=== PATIENT | female | born 1975 | race Two or more races ===

== ENCOUNTER 2019-02-27 19:25 | Inpatient (IN) | payer OTHER, BC ==
[2019-02-27 22:56] VITALS: BMI 24.3
--- NOTE | 2019-02-27 23:33 | HP ---
CIWA Score Nausea/Vomitin-No Nausea/No Vomiting Muscle Tremors: 4-Moderate,w/Arms Extend Anxiety: 4-Mod. Anxious/Guarded Agitation: 4-Moderately Restless Paroxysmal Sweats: 3 Orientation: 0-Oriented Tacttile Disturbances: 0-None Auditory Disturbances: 0-None Visual Disturbances: 0-None Headache: 0-None Present CIWA-Ar Total Score: 15 - Admission Criteria OAS Guidelines: Admission for Medically Managed Detox: Requires at least one of the followin. CIWA greater than 12 2. Seizures within the past 24 hours 3. Delirium tremens within the past 24 hours 4. Hallucinations within the past 24 hours 5. Acute intervention needed for co occurring medical disorder 6. Acute intervention needed for co occurring psychiatric disorder 7. Severe withdrawal that cannot be handled at a lower level of care (continued vomiting, continued diarrhea, abnormal vital signs) requiring intravenous medication and/or fluids 8. Patient presents the following: CIWA greater than 12 Admission Criteria Met: Admission criteria met Admission ROS [facility] Chief Complaint: C/O WORSENING WITHDRAWAL SX'S. SEEKING DETOX Allergies/Adverse Reactions: Allergies Allergy/AdvReac Type Severity Reaction Status Date / Time Penicillins AdvReac Verified 02/27/19 22:39 History of Present Illness: 43 Y.O. FEMALE WITH HX/O ALCOHOLISM HERE FOR DETOX. SHE IS REFERRED BY [facility] AFTER PRESENTING THERE FOR DETOX. THIS IS HERE FIRST TIME SEEKING DETOX TXMENT. PRESENTS WITH C/O WORSENING WITHDRAWAL SX'S. CIWA 15. DENIES ANY HX/O CLEAN TIME , WITHDRAWAL SZ, + BLACKOUTS. DOMICILED, EMPLOYED, DENIES LEGALS Exam Limitations: No Limitations - Ebola screening Have you traveled outside of the country in the last 21 days: No (N) Have you had contact with anyone from an Ebola affected area: No Do you have a fever: No - Review of Systems Constitutional: Chills, Loss of Appetite, Night Sweats, Changes in sleep EENT: reports: No Symptoms Reported Respiratory: reports: No Symptoms reported Cardiac: reports: No Symptoms Reported GI: reports: Diarrhea, Nausea, Poor Appetite, Poor Fluid Intake : reports: No Symptoms Reported Musculoskeletal: reports: No Symptoms Reported Integumentary: reports: Rash (BLE) Neuro: reports: Tremors, Dizziness, Other (+BLACKOUTS) Endocrine: reports: No Symptoms Reported Hematology: reports: No Symptoms Reported Psychiatric: reports: Orientated x3, Agitated (IRRITABLE), Anxious, Depressed Other Systems: Reviewed and Negative Patient History - Patient Medical History Hx Anemia: No Hx Asthma: No Hx Chronic Obstructive Pulmonary Disease (COPD): No Hx Cancer: No Hx Cardiac Disorders: No Hx Congestive Heart Failure: No Hx Hypertension: No Hx Hypercholesterolemia: Yes Hx Pacemaker: No HX Cerebrovascular Accident: No Hx Seizures: No Hx Dementia: No Hx Diabetes: No Hx Gastrointestinal Disorders: Yes (GERD) Hx Liver Disease: No Hx Genitourinary Disorders: No Hx Sexually Transmitted Disorders: No Hx Renal Disease (ESRD): No Hx Thyroid Disease: No Hx Human Immunodeficiency Virus (HIV): No Hx Hepatitis C: No Hx Depression: Yes Hx Suicide Attempt: No Hx Bipolar Disorder: No Hx Schizophrenia: No Other Medical History: DENIES - Patient Surgical History Past Surgical History: Yes Hx Abdominal Surgery: Yes (HERNIA REPAIR) Other Surgical History: LYMPH NODE REMOVAL FROM NECK Anesthesia Reaction: No - PPD History Previous Implant?: Yes Documented Results: Negative w/o proof Implanted On Prior R Admission?: No PPD to be Administered?: Yes - Reproductive History Patient is a Female of Child Bearing Age (11 -55 yrs old): Yes Last Menstrual Period: 12/28/16 LMP comment: [place] [facility] [place] Smoking Cessation Smoking history: Current some day smoker Have you smoked in the past 12 months: Yes Aproximately how many cigarettes per day: 2 Cigars Per Day: 0 Hx Chewing Tobacco Use: No Initiated information on smoking cessation: Yes 'Breaking Loose' booklet given: 02/27/19 - Substance & Tx. History Hx Alcohol Use: Yes Hx Substance Use: Yes Substance Use Type: Alcohol Hx Substance Use Treatment: No - Substances abused Alcohol Substance route: Oral Frequency: Daily Amount used: a pint and half of vodka Age of first use: 33 Date of last use: 02/27/19 Family Disease History - Family Disease History Family History: Denies Admission Physical Exam BHS - Vital Signs Vital Signs: Vital Signs - 24 hr 02/27/19 22:36 Temperature 98.2 F Pulse Rate 144 H Respiratory 16 Rate Blood Pressure 112/70 - Physical General Appearance: Yes: Alcohol on Breath, Tremorous (FELT), Irritable, Anxious HEENTM: Yes: EOMI, Normocephalic, Normal Voice, ARNULFO, Pharynx Normal Respiratory: Yes: Chest Non-Tender, Lungs Clear, Normal Breath Sounds, No Respiratory Distress, No Accessory Muscle Use Neck: Yes: No masses,lesions,Nodules, Supple, Trachea in good position Breast: Yes: Breasts Symetrical, No Discharge Cardiology: Yes: Regular Rhythm, Regular Rate, S1, S2 Abdominal: Yes: Normal Bowel Sounds, Non Tender, Soft Genitourinary: Yes: Within Normal Limits Back: Yes: Normal Inspection Musculoskeletal: Yes: full range of Motion, Gait Steady Extremities: Yes: Normal Capillary Refill, Normal Range of Motion, Non-Tender, Tremors Neurological: Yes: Fully Oriented, Alert, Motor Strength 5/5, Depressed Affect Integumentary: Yes: Dry, Warm, Rash (GRANULOMA ANNULARE TO BLE) - Diagnostic (1) Alcohol dependence with uncomplicated withdrawal Current Visit: Yes Status: Acute (2) HLD (hyperlipidemia) Current Visit: Yes Status: Acute (3) Nicotine dependence Current Visit: Yes Status: Chronic (4) Depressed affect Current Visit: Yes Status: Acute (5) At risk for dehydration due to poor fluid intake Current Visit: Yes Status: Acute (6) Granuloma annulare Current Visit: Yes Status: Acute (7) GERD (gastroesophageal reflux disease) Current Visit: Yes Status: Acute Cleared for Admission S - Detox or Rehab [facility] Level of Care: Medically Managed Detox Regimen/Protocol: Librium Claeared for Rehab Admission: No Breathalyzer - Breathalyzer Breathalyzer: 0.154 Urine Drug Screen - Test Device Lot number: [id number] Expiration date: 11/02/20 - Control Is test valid?: Yes - Results Drug screen NEGATIVE: Yes Inpatient Rehab Admission - Rehab Decision to Admit Inpatient rehab admission?: No
[2019-02-27] MEDS ORDERED: chlordiazePOXIDE HCL 25 MG CAPSULE PO PRN (23:46)
[2019-02-27] MEDS ORDERED: MAGNESIUM HYDROX 2400MG/30ML ORAL SUSPENSION 30 ML CUP PO PRN (23:46)
[2019-02-27] MEDS ORDERED: hydrOXYzine PAMOATE 25 MG CAPSULE (FP) PO PRN (23:46)
[2019-02-27] MEDS ORDERED: MAGNESIUM CITRATE 300 ML BOTTLE PO PRN (23:46)
[2019-02-27] MEDS ORDERED: DICYCLOMINE HCL 10 MG CAPSULE PO PRN (23:46)
[2019-02-27] MEDS ORDERED: ONDANSETRON *ODT* 4 MG TABLET SL PRN (23:46)
[2019-02-27] MEDS ORDERED: IBUPROFEN 400 MG TABLET (FP) PO PRN (23:46)
[2019-02-27] MEDS ORDERED: guaiFENesin 200 MG/10 ML 10 ML UNIT-DOSE CUPS PO PRN (23:46)
[2019-02-27] MEDS ORDERED: MAG HYDROX/AL HYDROX/SIMETH 30 ML UNIT-DOSE CUP PO PRN (23:46)
[2019-02-27] MEDS ORDERED: P-EPHED 60MG/TRIPROLIDI 2.5MG TABLET PO PRN (23:46)
[2019-02-27] MEDS ORDERED: MENTHOL/PHENOL 1 EACH UD MM PRN (23:46)
[2019-02-27] MEDS ORDERED: METHOCARBAMOL 500 MG TABLET PO PRN (23:46)
[2019-02-27] MEDS ORDERED: ACETAMINOPHEN 325 MG TABLET (FP) PO PRN ×2 (23:46)
[2019-02-27] MEDS ORDERED: BISMUTH SUBSALICYLATE 524 MG/30 ML UD PO PRN (23:46)
[2019-02-27] MEDS ORDERED: HYDROCORTISONE 1% TOPICAL LOTION 118 ML BOTTLE TP PRN (23:56)
[2019-02-28] MEDS: chlordiazePOXIDE HCL 25 MG CAPSULE PO SCH ×5 (00:45→22:28)
[2019-02-28] MEDS: NICOTINE POLACRILEX 2 MG GUM BUC PRN ×4 (00:55→22:30)
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
[2019-02-28 10:06] LABS: HEMATOCRIT 36.9 % (32.4-45.2); HEMOGLOBIN 12.3 GM/dL (10.7-15.3); MCH 30.8 pg (25.7-33.7); MCHC 33.3 g/dl (32.0-36.0); MEAN CELL VOLUME 92.7 fl (80-96); MEAN PLT VOLUME 7.9 fl (7.5-11.1); PLATELET COUNT 347 K/MM3 (134-434); RBC 3.98 M/mm3 (3.60-5.2); RDW 15.3 % (11.6-15.6); WHITE BLOOD COUNT 4.4 K/mm3 (4.0-10.0)
[2019-02-28 10:14] LABS: ALBUMIN 3.8 g/dl (3.4-5.0); BILIRUBIN,TOTAL 0.3 mg/dL (0.2-1); BLOOD UREA NITROGEN 13.8 mg/dL (7-18); CREATININE 0.8 mg/dL (0.55-1.3); POTASSIUM 4.1 mmol/L (3.5-5.1); TOT PROT 7.4 g/dl (6.4-8.2)
[2019-02-28] MEDS: PRENATAL VITAMINS W/ FOLIC ACID TABLET (FP) PO SCH (10:23)
[2019-02-28] MEDS: SERTRALINE HCL 50 MG TABLET (FP) PO SCH (10:23)
[2019-02-28] MEDS: NICOTINE 14 MG/24 HOURS TOPICAL PATCH TD SCH (10:25)
--- NOTE | 2019-02-28 11:42 | PN ---
S CIWA - CIWA Score Nausea/Vomitin-Mild Nausea/No Vomiting Muscle Tremors: 2 Anxiety: 1-Mildly Anxious Agitation: 1-Slight > Activity Paroxysmal Sweats: No Perspiration Orientation: 0-Oriented Tacttile Disturbances: 0-None Auditory Disturbances: 0-None Visual Disturbances: 0-None Headache: 1-Very Mild CIWA-Ar Total Score: 6 BHS Progress Note (SOAP) Subjective: pt states doing well with detox protocol, emploted as principal O: Vital Signs - 24 hr 02/27/19 02/28/19 02/28/19 22:36 00:30 00:45 Temperature 98.2 F 97.9 F Pulse Rate 144 H 69 69 Respiratory 16 16 Rate Blood Pressure 112/70 148/79 02/28/19 02/28/19 02/28/19 01:00 01:30 02:00 Temperature Pulse Rate 69 82 82 Respiratory 18 18 Rate Blood Pressure 02/28/19 02/28/19 02/28/19 02:30 03:00 03:30 Temperature Pulse Rate 80 80 80 Respiratory 18 18 18 Rate Blood Pressure 02/28/19 02/28/19 02/28/19 05:00 05:30 06:00 Temperature Pulse Rate 77 73 73 Respiratory 16 Rate Blood Pressure 02/28/19 02/28/19 02/28/19 06:30 07:00 07:03 Temperature 98.2 F Pulse Rate 77 72 73 Respiratory 16 Rate Blood Pressure 125/72 02/28/19 02/28/19 02/28/19 07:30 08:00 09:00 Temperature Pulse Rate 78 78 72 Respiratory 16 Rate Blood Pressure 02/28/19 02/28/19 02/28/19 09:30 10:00 10:30 Temperature 96.5 F L Pulse Rate 76 74 76 Respiratory 16 16 16 Rate Blood Pressure 149/73 Laboratory Tests 02/27/19 02/28/19 02/28/19 23:17 07:00 07:00 WBC 4.4 RBC 3.98 Hgb 12.3 Hct 36.9 MCV 92.7 MCH 30.8 MCHC 33.3 RDW 15.3 Plt Count 347 MPV 7.9 Sodium 138 Potassium 4.1 Chloride 104 Carbon Dioxide 28 Anion Gap 7 L BUN 13.8 Creatinine 0.8 Est GFR (CKD-EPI)AfAm 103.19 Est GFR (CKD-EPI)NonAf 89.04 Random Glucose 103 Calcium 9.0 Total Bilirubin 0.3 AST 74 H ALT 88 H Alkaline Phosphatase 73 Total Protein 7.4 Albumin 3.8 POC Urine HCG, Qual Negative mildly iincreased liver enzymes a/p: AUD- continue detox protocol, 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
[2019-02-28] MEDS: MELATONIN 5 MG TABLETS PO PRN (22:28)
[2019-02-28] MEDS: THIAMINE HCL 100 MG TABLET (FP) PO SCH (22:28)
[2019-03-01] MEDS: chlordiazePOXIDE HCL 25 MG CAPSULE PO SCH ×3 (06:03→17:23)
--- NOTE | 2019-03-01 10:50 | PN ---
S CIWA - CIWA Score Nausea/Vomitin Muscle Tremors: 2 Anxiety: 2 Agitation: 2 Paroxysmal Sweats: 1-Minimal Palms Moist Orientation: 0-Oriented Tacttile Disturbances: 1-Very Mild Itch/Numbness Auditory Disturbances: 1-Very Mild Visual Disturbances: 0-None Headache: 2-Mild CIWA-Ar Total Score: 13 BHS Progress Note (SOAP) Subjective: alert,irritable,anxious,interrupted sleep,tremor Objective: 03/01/19 10:48 Vital Signs Temperature 97.5 F L 03/01/19 09:14 Pulse Rate 69 03/01/19 09:14 Respiratory Rate 18 03/01/19 09:14 Blood Pressure 112/76 03/01/19 09:14 O2 Sat by Pulse Oximetry (%) Assessment: 03/01/19 10:49 withdrawal symptom Plan: continue detox,ua
[2019-03-01] MEDS: PRENATAL VITAMINS W/ FOLIC ACID TABLET (FP) PO SCH (10:55)
[2019-03-01] MEDS: SERTRALINE HCL 50 MG TABLET (FP) PO SCH (10:55)
[2019-03-01] MEDS: NICOTINE 14 MG/24 HOURS TOPICAL PATCH TD SCH (10:57)
[2019-03-01] MEDS: NICOTINE POLACRILEX 2 MG GUM BUC PRN ×2 (17:23→21:46)
[2019-03-01] MEDS: chlordiazePOXIDE HCL 10 MG CAPSULE PO SCH (22:27)
[2019-03-01] MEDS: THIAMINE HCL 100 MG TABLET (FP) PO SCH (22:27)
[2019-03-01] MEDS: MELATONIN 5 MG TABLETS PO PRN (22:27)
[2019-03-01] MEDS ORDERED: chlordiazePOXIDE HCL 10 MG CAPSULE PO PRN (23:00)
[2019-03-02] MEDS: chlordiazePOXIDE HCL 10 MG CAPSULE PO SCH ×4 (06:04→22:11)
[2019-03-02] MEDS ORDERED: MECLIZINE HCL 12.5 MG TABLET PO PRN (09:27)
--- NOTE | 2019-03-02 09:31 | PN ---
S CIWA - CIWA Score Nausea/Vomitin-Mild Nausea/No Vomiting Muscle Tremors: 3 Anxiety: 2 Agitation: 0-Normal Activity Paroxysmal Sweats: 1-Minimal Palms Moist Orientation: 0-Oriented Tacttile Disturbances: 0-None Auditory Disturbances: 0-None Visual Disturbances: 1-Very Mild Sensitivity Headache: 0-None Present CIWA-Ar Total Score: 8 S Progress Note (SOAP) Subjective: c/o dizziness, fatigue, constipation last BM yesterday, chills Objective: 03/02/19 11:06 Vital Signs Temperature 97.9 F 03/02/19 09:13 Pulse Rate 67 03/02/19 09:13 Respiratory Rate 18 03/02/19 09:13 Blood Pressure 108/65 03/02/19 09:13 O2 Sat by Pulse Oximetry (%) Laboratory Last Values WBC 4.4 K/mm3 (4.0-10.0) 02/28/19 07:00 RBC 3.98 M/mm3 (3.60-5.2) 02/28/19 07:00 Hgb 12.3 GM/dL (10.7-15.3) 02/28/19 07:00 Hct 36.9 % (32.4-45.2) 02/28/19 07:00 MCV 92.7 fl (80-96) 02/28/19 07:00 MCH 30.8 pg (25.7-33.7) 02/28/19 07:00 MCHC 33.3 g/dl (32.0-36.0) 02/28/19 07:00 RDW 15.3 % (11.6-15.6) 02/28/19 07:00 Plt Count 347 K/MM3 (134-434) 02/28/19 07:00 MPV 7.9 fl (7.5-11.1) 02/28/19 07:00 Sodium 138 mmol/L (136-145) 02/28/19 07:00 Potassium 4.1 mmol/L (3.5-5.1) 02/28/19 07:00 Chloride 104 mmol/L (98-107) 02/28/19 07:00 Carbon Dioxide 28 mmol/L (21-32) 02/28/19 07:00 Anion Gap 7 MMOL/L (8-16) L 02/28/19 07:00 BUN 13.8 mg/dL (7-18) 02/28/19 07:00 Creatinine 0.8 mg/dL (0.55-1.3) 02/28/19 07:00 Est GFR (CKD-EPI)AfAm 103.19 02/28/19 07:00 Est GFR (CKD-EPI)NonAf 89.04 02/28/19 07:00 Random Glucose 103 mg/dL (74-106) 02/28/19 07:00 Calcium 9.0 mg/dL (8.5-10.1) 02/28/19 07:00 Total Bilirubin 0.3 mg/dL (0.2-1) 02/28/19 07:00 AST 74 U/L (15-37) H 02/28/19 07:00 ALT 88 U/L (13-61) H 02/28/19 07:00 Alkaline Phosphatase 73 U/L (45-117) 02/28/19 07:00 Total Protein 7.4 g/dl (6.4-8.2) 02/28/19 07:00 Albumin 3.8 g/dl (3.4-5.0) 02/28/19 07:00 POC Urine HCG, Qual Negative 02/27/19 23:17 RPR Titer Nonreactive (NONREACTIVE) 02/28/19 07:00 Assessment: 03/02/19 11:07 Aox3 no distress, full ROM, abd non-tender withdrawal sx vertigo Plan: increase po fluids antivert PRN continue detox continue to monitor
[2019-03-02] MEDS: NICOTINE 14 MG/24 HOURS TOPICAL PATCH TD SCH (10:13)
[2019-03-02] MEDS: PRENATAL VITAMINS W/ FOLIC ACID TABLET (FP) PO SCH (10:13)
[2019-03-02] MEDS: SERTRALINE HCL 50 MG TABLET (FP) PO SCH (10:13)
[2019-03-02] MEDS: NICOTINE POLACRILEX 2 MG GUM BUC PRN ×3 (10:14→17:14)
[2019-03-02] MEDS: THIAMINE HCL 100 MG TABLET (FP) PO SCH (22:11)
[2019-03-02] MEDS: MELATONIN 5 MG TABLETS PO PRN (22:11)
[2019-03-03] MEDS: NICOTINE POLACRILEX 2 MG GUM BUC PRN ×4 (09:38→21:05)
--- NOTE | 2019-03-03 10:06 | PN ---
S CIWA - CIWA Score Nausea/Vomitin-No Nausea/No Vomiting Muscle Tremors: 1-None Visible, but [place] Anxiety: 2 Agitation: 1-Slight > Activity Paroxysmal Sweats: 2 Orientation: 0-Oriented Tacttile Disturbances: 0-None Auditory Disturbances: 0-None Visual Disturbances: 0-None Headache: 2-Mild CIWA-Ar Total Score: 8 S Progress Note (SOAP) Subjective: c/o headache, anxiety, and sweats. Objective: 03/03/19 10:05 Vital Signs 03/03/19 03/03/19 03:30 06:00 Temperature 97.3 F L Pulse Rate 60 Respiratory 18 18 Rate Blood Pressure 107/70 Lab Results WBC 4.4 K/mm3 (4.0-10.0) 02/28/19 07:00 RBC 3.98 M/mm3 (3.60-5.2) 02/28/19 07:00 Hgb 12.3 GM/dL (10.7-15.3) 02/28/19 07:00 Hct 36.9 % (32.4-45.2) 02/28/19 07:00 MCV 92.7 fl (80-96) 02/28/19 07:00 MCHC 33.3 g/dl (32.0-36.0) 02/28/19 07:00 RDW 15.3 % (11.6-15.6) 02/28/19 07:00 Plt Count 347 K/MM3 (134-434) 02/28/19 07:00 Sodium 138 mmol/L (136-145) 02/28/19 07:00 Potassium 4.1 mmol/L (3.5-5.1) 02/28/19 07:00 Chloride 104 mmol/L (98-107) 02/28/19 07:00 Carbon Dioxide 28 mmol/L (21-32) 02/28/19 07:00 Anion Gap 7 MMOL/L (8-16) L 02/28/19 07:00 BUN 13.8 mg/dL (7-18) 02/28/19 07:00 Creatinine 0.8 mg/dL (0.55-1.3) 02/28/19 07:00 Random Glucose 103 mg/dL (74-106) 02/28/19 07:00 Calcium 9.0 mg/dL (8.5-10.1) 02/28/19 07:00 Labs noted. Assessment: 03/03/19 10:06 AOX3, in no acute distress Full ROM, ambulating in the unit. mild withdrawal symptoms. Plan: continue detox.
[2019-03-03] MEDS: PRENATAL VITAMINS W/ FOLIC ACID TABLET (FP) PO SCH (10:33)
[2019-03-03] MEDS: chlordiazePOXIDE HCL 10 MG CAPSULE PO SCH ×2 (10:33→22:12)
[2019-03-03] MEDS: SERTRALINE HCL 50 MG TABLET (FP) PO SCH (10:33)
[2019-03-03] MEDS: NICOTINE 14 MG/24 HOURS TOPICAL PATCH TD SCH (10:33)
[2019-03-03] MEDS ORDERED: HYDROCORTISONE 2.5% LOTION - 1 BOTTLE TP PRN (17:26)
[2019-03-03] MEDS: THIAMINE HCL 100 MG TABLET (FP) PO SCH (22:12)
[2019-03-03] MEDS: MELATONIN 5 MG TABLETS PO PRN (22:12)
[2019-03-03 23:35] VITALS: PULSE 64
[2019-03-04 06:55] VITALS: BP 104/72; TEMP 97.3
--- NOTE | 2019-03-04 11:59 | DS ---
[facility] Detox Discharge Summary Admission Date: 02/27/19 Discharge Date: 03/04/19 - History Present History: Alcohol Dependence Additional Comments: Patient completed detox successfully. Patient is A/A/Ox3, in nad, ambulatory. Patient noted with mild elevation in AST/ALT most likely due to alcoholism. Patient instructed to follow up with PCP within 1-2 weeks for monitoring and encouraged abstinence from alcohol and illicit drug use. Pertinent Past History: Alcohol dependence HLD GERD Depression Nicotine use disorder - Physical Exam Results Vital Signs: Vital Signs Temperature 97.3 F L 03/04/19 06:00 Pulse Rate 64 03/04/19 06:00 Respiratory Rate 18 03/04/19 06:00 Blood Pressure 104/72 03/04/19 06:00 O2 Sat by Pulse Oximetry (%) Pertinent Admission Physical Exam Findings: Withdrawal symptoms Laboratory Tests 02/27/19 02/28/19 02/28/19 23:17 07:00 07:00 WBC 4.4 RBC 3.98 Hgb 12.3 Hct 36.9 MCV 92.7 MCH 30.8 MCHC 33.3 RDW 15.3 Plt Count 347 MPV 7.9 Sodium 138 Potassium 4.1 Chloride 104 Carbon Dioxide 28 Anion Gap 7 L BUN 13.8 Creatinine 0.8 Est GFR (CKD-EPI)AfAm 103.19 Est GFR (CKD-EPI)NonAf 89.04 Random Glucose 103 Calcium 9.0 Total Bilirubin 0.3 AST 74 H ALT 88 H Alkaline Phosphatase 73 Total Protein 7.4 Albumin 3.8 POC Urine HCG, Qual Negative RPR Titer 02/28/19 07:00 WBC RBC Hgb Hct MCV MCH MCHC RDW Plt Count MPV Sodium Potassium Chloride Carbon Dioxide Anion Gap BUN Creatinine Est GFR (CKD-EPI)AfAm Est GFR (CKD-EPI)NonAf Random Glucose Calcium Total Bilirubin AST ALT Alkaline Phosphatase Total Protein Albumin POC Urine HCG, Qual RPR Titer Nonreactive Labs reviewed: elevated AST/ALT most likely r/t alcoholism (encouraged abstinence, instructed to follow up with PCP within 1-2 weeks for monitoring). - Treatment Hospital Course: Detox Protocol Followed, Detoxed Safely, Responded well, Discharged Condition Good - Medication Discharge Medications: Ambulatory Orders Metoprolol Tartrate 25 mg PO DAILY PRN 02/27/19 Sertraline HCl 100 mg PO DAILY 02/27/19 - Diagnosis (1) Nicotine use disorder Status: Chronic (2) Alcohol dependence with uncomplicated withdrawal Status: Acute (3) Depressed affect Status: Acute (4) GERD (gastroesophageal reflux disease) Status: Chronic (5) HLD (hyperlipidemia) Status: Chronic - AMA Did Patient Leave Against Medical Advice: No (Follow up with PCP within 1-2 weeks)
== END 2019-03-04 10:14 | disposition home or self-care (01) | DRG 775 ==
LOC: YASAS 19:25 → Y6N 23:43
PROVIDERS: ADMIT Surgery; ATTEND Surgery
PROC: HZ2ZZZZ Detoxification Services for Substance Abuse Treatment (ICD-10-PCS; principal; 2019-02-27)
DX: F10.230 Alcohol dependence with withdrawal, uncomplicated (principal); F10.280 Alcohol dependence with alcohol-induced anxiety disorder; F10.282 Alcohol dependence with alcohol-induced sleep disorder; F17.210 Nicotine dependence, cigarettes, uncomplicated; F32.9 Major depressive disorder, single episode, unspecified; K21.9 Gastro-esophageal reflux disease without esophagitis; E78.5 Hyperlipidemia, unspecified; R42 Dizziness and giddiness; R63.4 Abnormal weight loss; L92.0 Granuloma annulare; Z88.0 Allergy status to penicillin
CPT/HCPCS: 36415; 80053; 81025; 85027; 86593